=== PATIENT | female | born 1935 | race Caucasian/White ===

== ENCOUNTER 2017-03-17 10:02 | Emergency (ER) | payer MEDICARE ==
--- NOTE | 2017-03-17 11:33 | ED ---
General Adult HPI - General Chief complaint: Extremity Problem,Nontraumatic Stated complaint: toes turning blue Time Seen by Provider: 03/17/17 10:31 Source: patient, RN notes reviewed, old records reviewed Mode of arrival: ambulatory - History of Present Illness Initial comments: This is an 79-year-old female who presents today for evaluation of blue feet. Patient states that she must not be getting both of her feet or she has worsening arthritis her feet and is concerned because she has diabetes. Patient 's symptoms were going on for 3-4 days. She denies any other injuries or trauma. Takes no medications for the pain or symptoms. And no other problems of any extremities. - Related Data Home Medications Medication Instructions Recorded Confirmed Cyanocobalamin (Vitamin B-12) 1,000 mcg PO DAILY 03/17/17 03/17/17 [Vitamin B-12] glipiZIDE XL [Glucotrol Xl] 10 mg PO AC-BID 03/17/17 03/17/17 metFORMIN HCL 1,000 mg PO AC-BID 03/17/17 03/17/17 Allergies Allergy/AdvReac Type Severity Reaction Status Date / Time No Known Allergies Allergy Verified 03/17/17 10:50 Review of Systems ROS Statement: Those systems with pertinent positive or pertinent negative responses have been documented in the HPI. ROS Other: All systems not noted in ROS Statement are negative. Past Medical History Past Medical History: Diabetes Mellitus History of Any Multi-Drug Resistant Organisms: None Reported Additional Past Surgical History / Comment(s): Kidney removal 2000 Past Psychological History: No Psychological Hx Reported Smoking Status: Former smoker Past Alcohol Use History: None Reported Past Drug Use History: None Reported General Exam - General Exam Comments Initial Comments: Patient does appear to have blue pigment and feet General appearance: alert, in no apparent distress Head exam: Present: atraumatic, normocephalic, normal inspection Eye exam: Present: normal appearance, PERRL, EOMI. Absent: scleral icterus, conjunctival injection, periorbital swelling ENT exam: Present: normal exam, mucous membranes moist Neck exam: Present: normal inspection. Absent: tenderness, meningismus, lymphadenopathy Respiratory exam: Present: normal lung sounds bilaterally. Absent: respiratory distress, wheezes, rales, rhonchi, stridor Cardiovascular Exam: Present: regular rate, normal rhythm, normal heart sounds. Absent: systolic murmur, diastolic murmur, rubs, gallop, clicks GI/Abdominal exam: Present: soft, normal bowel sounds. Absent: distended, tenderness, guarding, rebound, rigid Extremities exam: Present: normal inspection, full ROM, normal capillary refill. Absent: tenderness, pedal edema, joint swelling, calf tenderness Back exam: Present: normal inspection Neurological exam: Present: alert, oriented X3, CN II-XII intact Psychiatric exam: Present: normal affect, normal mood Skin exam: Present: warm, dry, intact, normal color. Absent: rash Course Vital Signs 03/17/17 03/17/17 10:25 11:44 Temperature 97 F L 98.1 F Pulse Rate 72 86 Respiratory 18 16 Rate Blood Pressure 199/84 158/97 O2 Sat by Pulse 99 98 Oximetry - Reevaluation(s) Reevaluation #1: With cleansing scrub, patient's fever able to be cleaned to normal skin Medical Decision Making - Medical Decision Making 81 female for ER for evaluation of the feet, patient is reassured that heater blew secondary to pigment likely related to socks, at this time patient states she feels foolish and will likely be dischared home Disposition Clinical Impression: Foot pain, bilateral Disposition: HOME SELF-CARE Condition: Good Instructions: Tinea Pedis (ED) Referrals: None,Stated [Primary Care Provider] - 1-2 days
[2017-03-17 11:44] VITALS: BP 158/97; PULSE 86; RESP 16; TEMP 98.1
== END 2017-03-17 11:44 | disposition home or self-care (01) ==
LOC: EC 10:02
DX: M79.672 Pain in left foot (principal); M79.671 Pain in right foot; E11.9 Type 2 diabetes mellitus without complications; Z79.84 Long term (current) use of oral hypoglycemic drugs; Z87.891 Personal history of nicotine dependence; Z79.899 Other long term (current) drug therapy
CPT/HCPCS: 99283